=== PATIENT | female | born 1930 | race Caucasian/White ===

== ENCOUNTER 2018-02-28 16:58 | Inpatient (IN) | payer OTHER ==
[~2018-02-28] VITALS: Ht 167.6 cm; Wt 98.0 kg
[2018-02-28 17:00] VITALS: BP_SYST 157
--- NOTE | 2018-02-28 17:00 | NUR ---
Arrived via BLS ambulance with compliant of right hip pain S/P fall which included a head strike, no obvious wounds. 2+ pedal pulses bilat, no shorting of right leg. Placed in room 7. Placed on pantograph ii engraver, blood pressure machine and pulse oximeter. To gown for exam. Side rails up. Report given to Dallas SUTTON.
--- NOTE | 2018-02-28 17:02 | NUR ---
Pt BIB BLS c/o R hip pain s/p slip and fall prior to arrival. Pt was ambulating with walker when she slipped on wet surface landing on R hip. Pt denies LOC/blurred vision/nausea/vomiting. No other injuries/complaints per pt/noted. Will continue to monitor.
[2018-02-28] MEDS ORDERED: NACL 0.9% 1,000 ML IV ONE ×2 (17:04→17:15)
--- NOTE | 2018-02-28 17:05 | NUR ---
ER Dr. Hollins at bedside examining patient.
[2018-02-28] MEDS ORDERED: ONDANSETRON HCL 4 MG/2 ML VIAL IVP ONE (17:15)
[2018-02-28] MEDS ORDERED: MORPHINE 4 MG/ML INJ. SYRINGE IVP ONE (17:15)
--- NOTE | 2018-02-28 17:20 | NUR ---
Radiology at bedside
[2018-02-28] MEDS ORDERED: TRIA1TAB96 PO (17:33)
[2018-02-28] MEDS ORDERED: GLU500 PO (17:33)
[2018-02-28] MEDS ORDERED: SITA100T11 PO (17:33)
--- NOTE | 2018-02-28 17:33 | NUR ---
Medication reconciliation completed with information provided by pt. Any prior medication reconciliation on file was reviewed and corrected.
--- NOTE | 2018-02-28 17:46 | NUR ---
Pt taken to radiology via gurney in stable condition
[2018-02-28 18:04] LABS: ANION GAP 9 (5-15); CALCIUM 10.2 mg/dL (8.4-11.0); CHLORIDE 98 mmol/L (98-107); CREATININE 1.01 mg/dL (0.55-1.30); GLUCOSE 361 mg/dL (70-99); POTASSIUM 3.8 mmol/L (3.5-5.1); SODIUM SERUM 134 mmol/L (136-145); UREA NITROGEN, BLOOD 10 mg/dL (8-21)
--- NOTE | 2018-02-28 18:04 | NUR ---
Pt requested for oxygen, per pt, she normally has oxygen at home. Dr. Hollins notified and OKayed for oxygen administration. 2L O2 via NC administered. Pt tolerated well. No adverse reactions noted.
[2018-02-28 18:07] LABS: BASOPHILS # (AUTO) 0.2 K/uL (0.0-0.2); BASOPHILS % (AUTO) 1.6 % (0.0-2.0); EOSINOPHILS # (AUTO) 0.2 K/uL (0.0-0.4); EOSINOPHILS % (AUTO) 1.4 % (0.0-4.0); HEMATOCRIT 45.8 % (36-48); HEMOGLOBIN 15.3 g/dL (12.0-16.0); LYMPHOCYTES # (AUTO) 3.3 K/uL (1.0-5.5); LYMPHOCYTES % (AUTO) 27.5 % (20.5-51.5); MEAN CORPUSCULAR HEMOGLOBIN 32 pg (27-31); MEAN CORPUSCULAR HGB CONC 33 % (32-36); MEAN CORPUSCULAR VOLUME 95 fL (79.0-98.0); MONOCYTES # (AUTO) 0.8 K/uL (0.0-1.0); MONOCYTES % (AUTO) 6.3 % (1.7-9.3); NEUTROPHILS # (AUTO) 7.6 K/uL (1.8-7.7); NEUTROPHILS % (AUTO) 63.2 % (40.0-70.0); PLATELET COUNT (AUTO) 270 K/uL (130-430); RED BLOOD CELL COUNT(AUTO) 4.84 MIL/uL (4.2-6.2); RED CELL DISTRIBUTION WIDTH 12.6 % (9.0-15.0); WHITE BLOOD COUNT (AUTO) 12.1 K/uL (4.8-10.8)
[2018-02-28 18:24] LABS: PROTHROMBIN TIME 10.3 SECS (9.5-12.5)
[2018-02-28 18:33] LABS: ALANINE AMINOTRANSFERASE 25 U/L (12-78); ALBUMIN 3.7 g/dL (3.4-4.8); ASPARTATE AMINOTRANSFERASE 19 U/L (10-37); TOTAL BILIRUBIN 0.6 mg/dL (0.0-1.0)
[2018-02-28 18:35] LABS: AMYLASE 25 U/L (0-100); LIPASE 116 U/L (73-393)
[2018-02-28 18:59] LABS: BILIRUBIN,URINE NEGATIVE (NEGATIVE); CLARITY/URINE SL HAZY (CLEAR); COLOR,URINE YELLOW (YELLOW); GLUCOSE,URINE 3+ (NEGATIVE); KETONES,URINE 1+ (NEGATIVE); LEUKOCYTE ESTERASE ,URINE NEGATIVE (NEGATIVE); NITRITE, URINE NEGATIVE (NEGATIVE); PH,URINE 5.5 (5.0-8.0); PROTEIN URINE TRACE (NEGATIVE); UROBILINOGEN,URINE 0.2 (0.2-1.0)
--- NOTE | 2018-02-28 19:10 | NUR ---
# 22 gauge angiocath placed to RIGHT HAND. Use of asceptic technique. Opsite placed over site. Blood return noted. Flushed with 10 cc of normal saline. No evidence of infiltration noted. Patient tolerated well.
[2018-02-28 19:12] LABS: BLOOD, URINE TRACE (NEGATIVE)
[2018-02-28 19:14] LABS: BACTERIA,URINE FEW /HPF (None Seen); RBC,URINE 0-3 /HPF (0-3)
[2018-02-28 19:15] LABS: MUCUS,URINE 1+ /LPF (None Seen); URINE AMORPHOUS URATE 2+ /HPF (None Seen)
--- NOTE | 2018-02-28 19:19 | NUR ---
ER MD Hollins at bedside discussing admission with patient and family.
--- NOTE | 2018-02-28 19:35 | NUR ---
End of life care decisions discussed with patient and daughter by Dr. Hollins. Opportunity for questions and concerns addressed. Patient's code status is Comfort Measures DNR. paperwork completed and placed in chart.
--- NOTE | 2018-02-28 19:48 | NUR ---
Patient will be admitted to care of DR SALGADO. Admitted to MS unit. Will go to room 135. Belongings list completed. Summary report printed. Report will be given at bedside.
--- NOTE | 2018-02-28 19:54 | NUR ---
Transfer to [facility]. IV present no sign or symptom of infiltration.
--- NOTE | 2018-02-28 19:57 | NUR ---
SBAR Report given to Arsen over the phone.
--- NOTE | 2018-02-28 20:12 | NUR ---
ADMIT NOTE Received pt from ER to the floor with a diagnosis of RIGHT GREATER TROCHANTER BONE FRACTURE. Admission process initiated. patient oriented to pain management, safety and call light-teach back done.
[2018-02-28 20:14] VITALS: BP_SYST 136
--- NOTE | 2018-02-28 21:00 | NUR ---
Patient is awake and alert, resting comfortably in bed. Assisted patient to change out of personal pajamas and into hospital gown. Jaylene (sister) at the bedside, stated that she will bring home all of the patient's belongings. Patient is now resting comfortably in bed. No SOB, no acute distress, complaints of pain on her right hip 09/04 but states that it is tolerable at this time. Bed is locked, in the lowest position, 2x side rails up, bed alarm is on. Call light within reach, patient able to demonstrate how to use the call light to call for assistance. Will continue with plan of care.
--- NOTE | 2018-02-28 21:33 | NUR ---
ORTHO CONSULT REASON FOR CONSULT: Rt. Greater Trochanter Fracture WAS CONSULT CALLED: Y PERSON NOTIFIED: [place] CONSULTING PHYSICIAN: Dr. Ganga Coronado PHYSICIAN'S PHONE NUMBER: [phone] Addendum: 03/01/18 at 0434 by Anisa Singer AK/ [employer] phone number: [phone]
[2018-02-28] MEDS ORDERED: ONDANSETRON HCL 4 MG/2 ML VIAL IVP PRN (21:45)
[2018-02-28] MEDS ORDERED: MORPHINE 2 MG/ML INJ. SYRINGE IVP PRN (21:45)
--- NOTE | 2018-02-28 22:21 | NUR ---
Patient is awake and alert, resting comfortably in bed. No SOB, no acute distress, no complaints of pain at this time. Placido (grandson), anshu (grandson), and dereck (son) at the bedside to see the patient. Provided patient with water for hydration and 2 yellow jello per patient request. Also assisted patient to turn and reposition for comfort. Heels elevated on a pillow. Bed is locked, in the lowest position, 2x side rails up, bed alarm is on. Call light is within reach. Will continue with plan of care.
--- NOTE | 2018-03-01 00:34 | NUR ---
Patient is asleep, resting comfortably in bed. No SOB, no acute distress, no complaints of pain at this time. Visible chest rise and fall seen. Bed is locked, in the lowest position, 2x side rails up, bed alarm is on. Call light is in the left hand. Will continue with plan of care.
[2018-03-01 01:56] VITALS: BP_SYST 133
--- NOTE | 2018-03-01 02:05 | NUR ---
Patient is resting comfortably in bed with eyes closed. Breathing even and unlabored with visible chest rise and fall noted. Call light is within reach. Will continue with plan of care.
--- NOTE | 2018-03-01 03:23 | NUR ---
Patient requested for assistance, stated she needed to use the restroom. Provided fractured bed grimes for the patient to use. Patient tolerated using the fractured bed grimes. Repositioned the patient for comfort. No SOB, no acute distress, no complaints of pain at this time. Bed is locked, in the lowest position, 2x side rails up, bed alarm is on. Call light is within reach, encouraged patient to call.
--- NOTE | 2018-03-01 04:26 | NUR ---
Patient is resting comfortably in bed with eyes closed. No SOB, no acute distress, no signs of pain or facial grimacing. Breathing is even and unlabored with visible chest rise and fall noted. Call light is within reach.
[2018-03-01] MEDS: INSULIN REGULAR, HUMAN 100 UNITS/ML, 10 ML VIAL (novoLIN R) SUBCUT PRN ×4 (06:05→20:07)
--- NOTE | 2018-03-01 06:20 | NUR ---
Patient is resting comfortably in bed with eyes closed. No SOB, no acute distress, no signs of pain or facial grimacing. Breathing is even and unlabored with visible chest rise and fall noted. Bed is locked, in the lowest position, 2x side rails up, bed alarm is on. Call light to right hand.
--- NOTE | 2018-03-01 07:30 | NUR ---
Closing Notes Handoff report given to oncoming dayshift nurse. Patient is awake and alert, resting comfortably in bed. No SOB, no acute distress, no complaints of pain at this time. IV site is intact, dressing clean and dry, saline locked. Bed is locked, in the lowest position, 2x side rails up, bed alarm is on. Call light is within reach. Fall and safety precautions maintained. All needs have been met during this shift.
--- NOTE | 2018-03-01 07:35 | NUR ---
am notes: patient on the bed,s/p fall from home. bed side report given by night nurse pancho.patient's pain at 2/10 level when not moving.neuro wright with in normal limit. positive pulse on right lower leg.call light with in reach. bed locked at lowest position. bed alarm on.
[2018-03-01 08:29] VITALS: BP_SYST 110
--- NOTE | 2018-03-01 10:08 | NUR ---
Nutrition Update Richard Scale 16 noted. Pt admitted for R greater trochanter bone fracture. Diet: [facility] BMI: 35 kg/m2 RD to follow per nutrition care standards.
--- NOTE | 2018-03-01 10:15 | NUR ---
rn rounds: stable. pain tolerated 2/10 level.patient stated ,minimal pain when not moving. no meds needed this time. call light with in reach. bed locked at lowest position.
--- NOTE | 2018-03-01 11:43 | NUR ---
P.T. NOTES RECEIVED P..T. EVAL ORDER, SPOKE ALMA SUTTON, WILL AWAIT DR. BECKER PROGRESS NOTES PATIENT HAS (+) HIP FRACTURE, AWAIT ANY WB RESTRICTION PER . RN IN AGREEMENT TO WAIT FOR MD NOTES
[2018-03-01] MEDS ORDERED: TRIAMTERENE/HYDROCHLOROTHIAZID 1 CAP CAPSULE (DYAZIDE37.5/25) PO ONE ×2 (12:00→13:00)
--- NOTE | 2018-03-01 12:05 | NUR ---
BLOOD SUGAR: BLOOD BHMQT=565NN/DL,REGULAR INSULIN 6 UNITS SUBQ GIVEN PER SLIDING SCALE. NO COMPLICATIONS NOTED.
[2018-03-01 13:00] VITALS: BP_SYST 114
--- NOTE | 2018-03-01 13:40 | NUR ---
ortho paged: spoke with dr early with orders full weight bearing as tolerated,no restrictions.
--- NOTE | 2018-03-01 16:19 | NUR ---
rn rounds: patient resting. family at the bedside. call light with in reach. bed locked at lowest position. bed alarm on. no need this time.
[2018-03-01] MEDS: metFORMIN HCL 500 MG TABLET PO SCH (17:18)
[2018-03-01 17:20] VITALS: BP_SYST 103
--- NOTE | 2018-03-01 17:20 | NUR ---
blood sugar: blood gfxhk=278se/dl,regular insulin coverage given per sliding scale. no complications noted.
--- NOTE | 2018-03-01 18:19 | NUR ---
dinner: patient eating her dinner. well tolerated. family at the bedside.
--- NOTE | 2018-03-01 18:29 | NUR ---
closing notes: patient resting after dinner. no needs this time. call light with in reach. bed locked at lowest position. bed alarm on. no distress.
--- NOTE | 2018-03-01 19:30 | NUR ---
Initial Notes Received handoff report from offgoing nurse at the bedside. Patient is awake and alert, resting comfortably in bed. No SOB, no acute distress, no complaints of pain at this time. IV site is intact on the right hand, dressing clean and dry, saline locked. Bed is locked, in the lowest position, 2x side rails up, bed alarm is on. Call light is within reach. Encouraged patient to call for assistance. Will continue with plan of care.
[2018-03-01 20:00] VITALS: BP_SYST 118
[2018-03-01] MEDS: ENOXAPARIN SODIUM 40 MG/0.4 ML SYRINGE SUBCUT SCH (20:06)
--- NOTE | 2018-03-01 20:30 | NUR ---
Patient is awake and alert, resting comfortably in bed, currently listening in on [employer] meeting through her phone. Patient states "since i cannot physically make the meeting, i have to listen to the meeting through a telephone number they give us." No complaints at this time, no sob, no acute distress. Bed is locked, in the lowest position, 2x side rails up, bed alarm is on. Call light is within reach. Encouraged patient to call for assistance.
--- NOTE | 2018-03-01 22:10 | NUR ---
Patient is resting comfortably in bed, just finished using the fractured bed grimes to urinate. BEAM WARPER at the bedside to provide skin care for the patient. Patient is now resting comfortably in bed. Bed is locked, in the lowest position, 2x side rails up, bed alarm is on. Call light is within reach. Encouraged patient to call for assistance.
--- NOTE | 2018-03-01 23:52 | NUR ---
Patient is resting comfortably in bed with eyes closed. No SOB, no acute distress, no signs of pain or facial grimacing. Breathing is even and unlabored with visible chest rise and fall noted. Bed is locked, in the lowest position, 2x side rails up, bed alarm is on. Call light is within reach.
[2018-03-02 00:24] VITALS: BP_SYST 124
--- NOTE | 2018-03-02 02:05 | NUR ---
Patient had an episode of urinary incontinence. Provided perineal care and changed linen as needed. Patient is now clean and dry. Assisted patient to turn and reposition. Bed is locked, placed back into the lowest position, 2x side rails up, bed alarm is on. Call light is within reach. Encouraged patient to call for assistance.
--- NOTE | 2018-03-02 03:30 | NUR ---
Patient is asleep, resting comfortably in bed. No SOB, no acute distress, no signs of pain or facial grimacing at this time. Visible chest rise and fall seen. Bed is locked, in the lowest position, 3x side rails up, bed alarm is on. Call light within reach.
--- NOTE | 2018-03-02 06:00 | NUR ---
Patient is resting comfortably in bed. Assisted patient to use the bedpan. Patient able to urinate clear yellow urine. Provided perineal care. Patient is now resting comfortably in bed. No SOB, no acute distress, no complaints of pain. Call light is within reach. Encouraged patient to call.
[2018-03-02] MEDS: INSULIN REGULAR, HUMAN 100 UNITS/ML, 10 ML VIAL (novoLIN R) SUBCUT PRN ×4 (06:02→20:44)
--- NOTE | 2018-03-02 07:45 | NUR ---
Closing Notes Handoff report given to oncoming dayshift nurse at the bedside. Patient is sleeping, resting comfortably in bed. No SOB, no acute distress, no signs of pain or facial grimacing. Breathing even and unlabored with visible chest rise and fall noted. IV site is intact, dressing clean and dry, saline locked. Call light is within reach. Bed is locked, in the lowest position, 2x side rails up, bed alarm is on. Fall and safety precautions maintained. All needs have been met during this shift.
--- NOTE | 2018-03-02 08:10 | NUR ---
Opening note Pt received, sitting in bed eating breakfast, report only has pain "when I move." Pt ALOCx3. No s/s of SOB or distress, no c/o pain except as noted. Reviewed safety and bed check completed. Pillow repositioned. Reviewed care plan for the day including PT coming. Bed in low locked position with call light within reach. Bed alarm on.
[2018-03-02 08:26] VITALS: BP_SYST 117
[2018-03-02] MEDS: metFORMIN HCL 500 MG TABLET PO SCH ×2 (08:50→18:02)
[2018-03-02] MEDS: TRIAMTERENE/HYDROCHLOROTHIAZID 1 CAP CAPSULE (DYAZIDE37.5/25) PO SCH (08:51)
[2018-03-02] MEDS ORDERED: TRIAMTERENE/HYDROCHLOROTHIAZID 1 CAP CAPSULE (DYAZIDE37.5/25) PO SCH (09:00)
--- NOTE | 2018-03-02 10:15 | NUR ---
Rounding Pt sitting at bedside, visiting with family, no s/s of SOB or distress, no c/o pain or discomfort. PT saw patient. Pt anticipating going home tomorrow. Reviewed safety, call light within reach.
--- NOTE | 2018-03-02 12:00 | NUR ---
Rounding Pt in bed visiting with 8 guests, no s/s of SOB or distress, no c/o pain at this time. Blood glucose (290) elevated, coverage provided per sliding scale, becky fisher just arrived, and set up by daughter. Bed in low locked position call light within reach.
[2018-03-02 12:11] VITALS: BP_SYST 115
--- NOTE | 2018-03-02 12:31 | NUR ---
DC planning: Met w/pt and dtr at bedside--Pt has been on service with [facility]. Pt doesn't want to go to SNF and said she ambulated with PT today in room-gait was steady. HARPAL SUTTON
--- NOTE | 2018-03-02 14:00 | NUR ---
Rounding Pt resting in bed, visiting with multiple friends. No s/s of SOB or distress, no c/o pain at this time. Pt assisted to and from bedside commode. pt can transfer with assistance. Bed and safety check completed. Bed in low locked position with bed alarm on and call light within reach
--- NOTE | 2018-03-02 14:27 | NUR ---
Dietitian Recommendations * [facility]/ Glucerna BID (oral supplement provides an additional 440 kcal/day and 20 gm protein/day) LP, RD Please refer to Nutrition Assessment for details.
--- NOTE | 2018-03-02 16:00 | NUR ---
PHYSICAL THERAPY CO-SIGN The Physical Therapy Progress Notes documented by Newspaper Delivery Counselor have been reviewed. Reviewed/Co-Signed by: Sukh Tyler PT Documentation Done by: TYLER ARZOLA PTA I CONCUR WITH PANTS BUSHELER [place] Addendum: 03/03/18 at 1521 by Sukh Tyler PT Amended: Links added.
--- NOTE | 2018-03-02 16:00 | NUR ---
Rounding Pt resting in bed visiting with family, no s/s of SOB or distress, no c/o of pain or discomfort at this time. Bed and safety check completed, will continue to monitor.
[2018-03-02 16:32] VITALS: BP_SYST 115
--- NOTE | 2018-03-02 18:00 | NUR ---
Rounding Pt tlaking with friends at bedside, blood glucose had been check and was elevated, sliding scale insulin administered, later scheduled metformin given. No s/s of SOB or distress, no c/o pain. Pt awaiting physician rounding tonight.
--- NOTE | 2018-03-02 18:52 | NUR ---
Closing Pt resting in bed, no s/s of SOB or distress, no c/o pain or discomfort, pain depends on positioning. Pt AAOx4, family has left for the day, but friends remain at bedside. Safety and bed check again completed, all needs met over the course of the shift. Bed in low locked position with call light within reach.
--- NOTE | 2018-03-02 19:30 | NUR ---
Initial Notes Received handoff report from offgoing nurse at the bedside. Patient is awake and alert, resting comfortably in bed. No SOB, no acute distress, no complaints of pain at this time. Bed is locked, in the lowest position, 2x side rails up, bed alarm is on. Call light is within reach. Will continue with plan of care.
[2018-03-02 20:00] VITALS: BP_SYST 136
[2018-03-02] MEDS: ENOXAPARIN SODIUM 40 MG/0.4 ML SYRINGE SUBCUT SCH (20:45)
--- NOTE | 2018-03-02 22:35 | NUR ---
Patient is sleeping, resting comfortably in bed. No SOB, no acute distress, no signs of pain. Visible chest rise and fall seen. Call light is within reach.
--- NOTE | 2018-03-02 23:32 | NUR ---
Patient is awake and alert, resting comfortably in bed. No SOB, no acute distress, no complaints of pain at this time. IV site is intact, dressing clean and dry, saline locked. Bed is locked, in the lowest position, 2x side rails up. bed alarm is on. Call light is within reach.
[2018-03-03 00:04] VITALS: BP_SYST 129
--- NOTE | 2018-03-03 02:40 | NUR ---
Patient is sleeping, resting comfortably in bed. No SOB, no signs of pain, no acute distress. Visible chest rise and fall seen. Call light within reach.
--- NOTE | 2018-03-03 04:29 | NUR ---
Patient is asleep, resting comfortably in bed. No SOB, no acute distress, no signs of pain or facial grimacing. Breathing is even and unlabored with visible chest rise and fall noted. IV site is intact, dressing clean and dry, saline locked. Call light is within reach.
[2018-03-03] MEDS: INSULIN REGULAR, HUMAN 100 UNITS/ML, 10 ML VIAL (novoLIN R) SUBCUT PRN ×2 (06:02→11:51)
--- NOTE | 2018-03-03 06:54 | NUR ---
Patient is awake and alert, resting comfortably in bed. No SOB, no acute distress, no complaints of pain at this time. Patient states that she only gets pain when she has to move or get up. Offered pain medication for the patient, since she will be getting up to eat. Patient refused. Bed is locked, in the lowest position, 2x side rails up, bed alarm is on. Call light is within reach. Encouraged patient to call.
--- NOTE | 2018-03-03 07:27 | NUR ---
Closing Notes Handoff report given to oncoming dayshift nurse at the bedside. Patient is sleeping, resting comfortably in bed, easily aroused by voice. Family is at the bedside. No SOB, no acute distress, no complaints if pain at this time. Bed is locked, in the lowest position, 2x side rails up, bed alarm is on. IV site to the right hand is intact, dressing clean and dry, saline locked. Call light is within reach. Fall and safety precautions maintained. All needs have been met during this shift.
--- NOTE | 2018-03-03 07:27 | NUR ---
Initial notes: Patient on bed awake, alert and oriented. Stable. I.v. access patent. Daughter at bedside. Discussed plan of care. Safety measures in placed. Call light within reach. Report received at bedside.
[2018-03-03 07:56] VITALS: BP_SYST 134
[2018-03-03] MEDS: TRIAMTERENE/HYDROCHLOROTHIAZID 1 CAP CAPSULE (DYAZIDE37.5/25) PO SCH (08:33)
[2018-03-03] MEDS: metFORMIN HCL 500 MG TABLET PO SCH (08:33)
--- NOTE | 2018-03-03 08:40 | NUR ---
rounds; patient on bed resting .no distress noted.
--- NOTE | 2018-03-03 10:14 | NUR ---
Communication with Dr. Hussein: Informed Dr. Hussein patient does not want Morphine for pain meds and cannot cooperate with P.T. due to pain. No new order and will see the patient.
--- NOTE | 2018-03-03 11:04 | NUR ---
CT scan: patient went to CT scan dept for CT of R HIP.
--- NOTE | 2018-03-03 11:04 | NUR ---
DC PLANNING Spoke w pt @ dtr Ellen @ bedside, pt decided that needs SNF for rehab. Agreeable w short term SNF, states that wants to go to [facility] under Dr Jaramillo, she has already called & they told her have a bed avail. Informed dc associate financial planner Merle/Amy CANSECO.
--- NOTE | 2018-03-03 11:36 | NUR ---
Discharge Planning: CM spoke with pt about discharge planning, pt requested [facility] ([phone] p [phone]), pt said her PCP sees pts there DCP faxed referral to [facility].
--- NOTE | 2018-03-03 11:53 | NUR ---
rounds: patient on bed talking to daughter and visitor. no distress noted. no pain while at rest, only when moving.
[2018-03-03 12:21] VITALS: BP_SYST 119
--- NOTE | 2018-03-03 13:06 | NUR ---
Umang rounds: Seen by Dr. Hussein with new order.
[2018-03-03] MEDS ORDERED: HYDROcodone/ACETAMIN 10-325 MG TAB PO PRN (13:30)
[2018-03-03 14:18] VITALS: BP_SYST 119
--- NOTE | 2018-03-03 14:27 | NUR ---
Discharge Planning: Pt accepted to [facility] (f [phone] p [phone]) room 26B per [place], transportation arranged [facility] ([phone]) 3:00pm. DCPtook packet to nurses station.
--- NOTE | 2018-03-03 15:19 | NUR ---
PHYSICAL THERAPY CO-SIGN The Physical Therapy Progress Notes documented by Criminal Justice Teacher have been reviewed. Reviewed/Co-Signed by: Sukh Tyler PT Documentation Done by: IGNACIA LOPEZ PROGRESSING STEADILY TOWARDS REHAB GOALS Addendum: 03/03/18 at 1521 by Sukh Tyler PT Amended: Links added.
[2018-03-03 16:26] VITALS: BP_SYST 115
--- NOTE | 2018-03-03 16:50 | NUR ---
PT TRANSFERRED Report given to LESLEY Ceron at [facility]. Transfer packet with Transfer Orders and Medication Reconciliation form given to EMT with report. Exitcare provided. [facility] ID band removed, replaced with ID band with pt's name and . IV catheter removed, intact and dressing applied, no active bleeding. All belongings sent with patient. Patient left floor via gurney escorted by EMT in no distress.
[2018-03-03] MEDS ORDERED: SENNOSIDES 8.6 MG TABLET PO SCH (21:00)
== END 2018-03-03 16:52 | DRG 536 ==
LOC: SED 16:58 → SMU 19:48
PROVIDERS: ADMIT Family Medicine; ATTEND Family Medicine
DX: S72.114A Nondisplaced fracture of greater trochanter of right femur, initial encounter for closed fracture (principal); M19.90 Unspecified osteoarthritis, unspecified site; I10 Essential (primary) hypertension; Z96.641 Presence of right artificial hip joint; E11.9 Type 2 diabetes mellitus without complications; Z51.5 Encounter for palliative care; E66.9 Obesity, unspecified; W01.0XXA Fall on same level from slipping, tripping and stumbling without subsequent striking against object, initial encounter; Y93.89 Activity, other specified; Y92.89 Other specified places as the place of occurrence of the external cause; Y99.8 Other external cause status; Z68.34 Body mass index [BMI] 34.0-34.9, adult; Z95.0 Presence of cardiac pacemaker; Z88.1 Allergy status to other antibiotic agents; Z79.899 Other long term (current) drug therapy
CPT/HCPCS: 36415; 71045; 72192-TC; 73552; 80053; 81000-TC; 82150-TC; 82550-TC; 82962; 83690-TC; 84484; 85025; 85610-TC; 85730-TC; 93005; 96361; 96374; 96375; 97110-GP; 97116-GP; 97530-GP; 99285; J1650; J1815; J2270; J2405